=== PATIENT | male | born 1965 | race Caucasian/White ===

== ENCOUNTER 2018-10-03 18:17 | Emergency (ER) | payer BC ==
[~2018-10-03] VITALS: Ht 198.1 cm; Wt 123.8 kg
[~2018-10-03 18:17] MED LIST: BACTRIM DS TAB1 EACH PO; FLOMAX0.4 MG PO; GABAPENTIN100 MG PO; LEVOTHYROXINE50 MCG PO; LINZESS PO; SERTRALINE HCL50 MG PO; WELLBUTRIN100 MG PO; Z.0.ACIPHEX20 MG MT
== END 2018-10-03 19:48 | disposition home or self-care (01) ==
LOC: FSED 18:17
DX: K08.89 Other specified disorders of teeth and supporting structures (principal); K04.4 Acute apical periodontitis of pulpal origin
CPT/HCPCS: 99282

== ENCOUNTER 2022-09-30 21:52 | Emergency (ER) | payer BC ==
[~2022-09-30] VITALS: Ht 198.1 cm; Wt 123.8 kg
[2022-10-01] MEDS ORDERED: PAXLOVID 300-11 EACH PO (00:24)
[2022-10-01 00:51] VITALS: BP 111/67
== END 2022-10-01 00:30 | disposition home or self-care (01) ==
LOC: ER 21:55
DX: R50.9 Fever, unspecified (principal); U07.1 COVID-19; R05.9 Cough, unspecified; E03.9 Hypothyroidism, unspecified; K21.9 Gastro-esophageal reflux disease without esophagitis
CPT/HCPCS: 71045; 99283; U0002